=== PATIENT | female | born 1990 | race Caucasian/White ===

== ENCOUNTER 2017-10-29 19:55 | Emergency (ER) | payer OTHER ==
[~2017-10-29] VITALS: Ht 157.5 cm; Wt 62.0 kg
[~2017-10-29 19:55] MED LIST: ALPR1TAB2 PO; ESCI10TA PO
[2017-10-29] MEDS ORDERED: HYDROcodone/acetaminophen 10/325mg tab PO ONE (21:25)
[2017-10-29] MEDS ORDERED: HYDR-3965 PO (21:40)
[2017-10-29 22:38] VITALS: BP 122/74
== END 2017-10-29 22:40 | disposition home or self-care (01) ==
LOC: ER 19:55
DX: S62.502A Fracture of unspecified phalanx of left thumb, initial encounter for closed fracture (principal); K21.9 Gastro-esophageal reflux disease without esophagitis; Z90.49 Acquired absence of other specified parts of digestive tract; V19.9XXA Pedal cyclist (driver) (passenger) injured in unspecified traffic accident, initial encounter; Y93.55 Activity, bike riding; Y92.89 Other specified places as the place of occurrence of the external cause; Y99.8 Other external cause status
CPT/HCPCS: 73140; 99284; A6255

== ENCOUNTER 2020-12-01 11:26 | Emergency (ER) | payer MEDICAID ==
[~2020-12-01] VITALS: Ht 157.5 cm; Wt 57.5 kg
[~2020-12-01 11:26] MED LIST changes: +CEPH-585 PO
[2020-12-01 12:51] LABS: MEAN PLATELET VOLUME 7.7 FL (7.4-10.4); WHITE BLOOD COUNT 6.5 X10'3 (4.5-11.0)
[2020-12-01 12:53] LABS: HEMATOCRIT 39.1 % (35.0-45.0); HEMOGLOBIN 13.2 g/dl (12.0-16.0); MEAN CORPUSCULAR HEMOGLOBIN 29.9 PG (27.0-31.0); MEAN CORPUSCULAR HGB CONC 33.9 g/dL (33.0-36.5); MEAN CORPUSCULAR VOLUME 88.4 FL (78-98); PLATELET COUNT 257 X10'3 (140-440); RED BLOOD COUNT 4.43 X10'6 (4.20-5.60); RED CELL DISTRIBUTION WIDTH 12.2 % (11.5-14.5)
[2020-12-01 13:06] LABS: ALANINE AMINOTRANSFERASE 31 U/L (12-78); ALBUMIN 3.4 G/DL (3.4-5.0); ALBUMIN/GLOBULIN RATIO 0.8 (1.1-1.5); ALKALINE PHOSPHATASE 125 IU/L (46-116); ANION GAP 7 (8-16); ASPARTATE AMINO TRANSFERASE 20 U/L (10-37); BILIRUBIN,TOTAL 0.2 MG/DL (0.1-1.0); BLOOD UREA NITROGEN 12 MG/DL (7-18); BUN/CREATININE RATIO 15.8 (6.6-38.0); CALCIUM 9.5 MG/DL (8.5-10.1); CHLORIDE 105 MMOL/L (99-107); CREATININE 0.76 MG/DL (0.40-0.90); GLUCOSE 96 MG/DL (70-104); POTASSIUM 3.9 MMOL/L (3.5-5.1); SODIUM 144 MMOL/L (135-145); TOTAL CARBON DIOXIDE 32.5 MMOL/L (24-32); TOTAL PROTEIN 7.9 G/DL (6.4-8.2); eGFR > 90 ML/MIN
[2020-12-01 13:27] LABS: PLATELET ESTIMATE NORMAL; TOTAL CELLS COUNTED 100
[2020-12-01] MEDS ORDERED: ceFAZolin 1gm IM kit IM ONE (14:55)
[2020-12-01] MEDS ORDERED: CEPH-585 PO (14:58)
--- NOTE | 2020-12-01 15:21 | NUR ---
patient seen , treated and discahrged prior to rn contact. 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
[2020-12-01 15:22] VITALS: BP 121/65
== END 2020-12-01 15:26 | disposition home or self-care (01) ==
LOC: ER 11:27
DX: L02.413 Cutaneous abscess of right upper limb (principal); L03.113 Cellulitis of right upper limb; K21.9 Gastro-esophageal reflux disease without esophagitis; F41.9 Anxiety disorder, unspecified; Z90.49 Acquired absence of other specified parts of digestive tract; Z98.890 Other specified postprocedural states; Z88.8 Allergy status to other drugs, medicaments and biological substances; Z79.2 Long term (current) use of antibiotics; Z79.899 Other long term (current) drug therapy
CPT/HCPCS: 10060; 80053; 84145; 85007; 85025; 96372; 99284; J0690

== ENCOUNTER 2021-01-31 20:16 | Emergency (ER) | payer MEDICAID ==
[~2021-01-31] VITALS: Ht 157.5 cm; Wt 54.5 kg
[2021-01-31] MEDS ORDERED: ondansetron 4mg rapidly disintigrating tab PO ONE (21:35)
[2021-01-31 21:51] VITALS: BP 117/78
== END 2021-01-31 21:52 | disposition home or self-care (01) ==
LOC: ER 20:17
DX: R11.0 Nausea (principal); R42 Dizziness and giddiness; K21.9 Gastro-esophageal reflux disease without esophagitis; F41.9 Anxiety disorder, unspecified; Z90.49 Acquired absence of other specified parts of digestive tract; Z98.890 Other specified postprocedural states; Z88.8 Allergy status to other drugs, medicaments and biological substances; Z79.2 Long term (current) use of antibiotics; Z79.899 Other long term (current) drug therapy
CPT/HCPCS: 99283

== ENCOUNTER 2021-03-05 12:36 | Emergency (ER) | payer MEDICAID ==
[~2021-03-05] VITALS: Ht 157.5 cm; Wt 57.7 kg
[2021-03-05 12:42] VITALS: BP 133/92
[2021-03-05] MEDS ORDERED: MUPI22OI30 TOP (15:42)
== END 2021-03-05 15:58 | disposition home or self-care (01) ==
LOC: ER 12:36
DX: J34.89 Other specified disorders of nose and nasal sinuses (principal); K21.9 Gastro-esophageal reflux disease without esophagitis; F41.9 Anxiety disorder, unspecified; Z90.49 Acquired absence of other specified parts of digestive tract; Z98.890 Other specified postprocedural states; Z88.8 Allergy status to other drugs, medicaments and biological substances; Z79.2 Long term (current) use of antibiotics; Z79.899 Other long term (current) drug therapy
CPT/HCPCS: 99283

== ENCOUNTER 2021-03-10 11:01 | Emergency (ER) | payer MEDICAID ==
[~2021-03-10] VITALS: Ht 157.5 cm; Wt 57.7 kg
[~2021-03-10 11:01] MED LIST changes: +MUPI22OI30 TOP
[2021-03-10 11:05] VITALS: BP 158/98
[2021-03-10] MEDS ORDERED: CLIN150C2 PO (11:09)
== END 2021-03-10 11:24 | disposition home or self-care (01) ==
LOC: ER 11:02
DX: L70.8 Other acne (principal); K21.9 Gastro-esophageal reflux disease without esophagitis; F41.9 Anxiety disorder, unspecified; Z87.81 Personal history of (healed) traumatic fracture; Z88.8 Allergy status to other drugs, medicaments and biological substances
CPT/HCPCS: 99283

== ENCOUNTER 2021-03-14 12:50 | Emergency (ER) | payer MEDICAID ==
[~2021-03-14] VITALS: Ht 157.5 cm; Wt 57.0 kg
[~2021-03-14 12:50] MED LIST changes: +CLIN150C2 PO; -MUPI22OI30 TOP
[2021-03-14 13:06] VITALS: BP 123/81
== END 2021-03-14 15:42 | disposition home or self-care (01) ==
LOC: ER 12:51
DX: M25.512 Pain in left shoulder (principal); K21.9 Gastro-esophageal reflux disease without esophagitis; F41.9 Anxiety disorder, unspecified; Z90.49 Acquired absence of other specified parts of digestive tract; Z98.890 Other specified postprocedural states; Z88.8 Allergy status to other drugs, medicaments and biological substances; Z79.2 Long term (current) use of antibiotics; Z79.899 Other long term (current) drug therapy
CPT/HCPCS: 73030; 99283

== ENCOUNTER 2021-05-02 21:20 | Emergency (ER) | payer MEDICAID ==
[~2021-05-02] VITALS: Ht 157.5 cm; Wt 57.7 kg
[~2021-05-02 21:20] MED LIST changes: -CLIN150C2 PO
[2021-05-02 21:43] VITALS: BP 145/81
--- NOTE | 2021-05-02 21:47 | NUR ---
PT PREFERS TO GO BY [facility]
[2021-05-02] MEDS ORDERED: ONDA4TAB12 PO (21:48)
== END 2021-05-02 23:15 | disposition home or self-care (01) ==
LOC: ER 21:20
DX: R50.9 Fever, unspecified (principal); Z20.822 Contact with and (suspected) exposure to COVID-19; R11.2 Nausea with vomiting, unspecified; K21.9 Gastro-esophageal reflux disease without esophagitis; F41.9 Anxiety disorder, unspecified; Z90.49 Acquired absence of other specified parts of digestive tract; Z98.890 Other specified postprocedural states; Z88.8 Allergy status to other drugs, medicaments and biological substances; Z79.2 Long term (current) use of antibiotics; Z79.899 Other long term (current) drug therapy
CPT/HCPCS: 87635; 99283; C9803

== ENCOUNTER 2021-11-03 22:30 | Emergency (ER) | payer MEDICAID ==
[~2021-11-03] VITALS: Ht 157.5 cm; Wt 55.1 kg
[~2021-11-03 22:30] MED LIST changes: -CEPH-585 PO; +ONDA4TAB12 PO
[2021-11-03] MEDS ORDERED: normal saline 1000ML IV soln IVB ONE ×2 (23:15→23:20)
--- NOTE | 2021-11-03 23:37 | NUR ---
Pt pink, alert, no acute/resp distress. PIV site c/d/i s complication or adverse rxn. IVF infusing well s complication or infiltration.
[2021-11-03 23:39] LABS: BASOPHILS # (AUTO) 0.1 X10'3 (0-0.2); BASOPHILS % (AUTO) 1.2 % (0-1); EOSINOPHILS # (AUTO) 0.1 X10'3 (0-0.9); EOSINOPHILS % (AUTO) 0.9 % (0-6); HEMATOCRIT 40.7 % (35.0-45.0); HEMOGLOBIN 13.8 g/dl (12.0-16.0); LYMPHOCYTES # (AUTO) 1.1 X10'3 (1.1-4.8); LYMPHOCYTES % (AUTO) 17.2 % (21-51); MEAN CORPUSCULAR HEMOGLOBIN 29.5 PG (27.0-31.0); MEAN CORPUSCULAR HGB CONC 33.9 g/dL (33.0-36.5); MEAN CORPUSCULAR VOLUME 86.9 FL (78-98); MONOCYTES # (AUTO) 0.5 X10'3 (0-0.9); MONOCYTES % (AUTO) 7.1 % (2-12); NEUTROPHILS # (AUTO) 4.9 X10'3 (1.8-7.7); NEUTROPHILS % (AUTO) 73.6 % (42-75); PLATELET COUNT 260 X10'3 (140-440); RED BLOOD COUNT 4.68 X10'6 (4.20-5.60); WHITE BLOOD COUNT 6.6 X10'3 (4.5-11.0)
[2021-11-03 23:41] LABS: D-DIMER < 0.19 MG/L FEU (0-0.50)
[2021-11-03 23:43] LABS: ALANINE AMINOTRANSFERASE 21 U/L (12-78); ALBUMIN 3.9 G/DL (3.4-5.0); ALKALINE PHOSPHATASE 106 IU/L (46-116); ANION GAP 12 (8-16); ASPARTATE AMINO TRANSFERASE 15 U/L (10-37); BILIRUBIN,TOTAL 0.2 MG/DL (0.1-1.0); BLOOD UREA NITROGEN 13 MG/DL (7-18); BUN/CREATININE RATIO 18.1 (6.6-38.0); CALCIUM 8.7 MG/DL (8.5-10.1); CHLORIDE 104 MMOL/L (99-107); CREATININE 0.72 MG/DL (0.40-0.90); GLUCOSE 128 MG/DL (70-104); POTASSIUM 3.5 MMOL/L (3.5-5.1); SODIUM 144 MMOL/L (135-145); TOTAL CARBON DIOXIDE 28.2 MMOL/L (24-32); TOTAL PROTEIN 7.7 G/DL (6.4-8.2); eGFR > 90 ML/MIN
[2021-11-03 23:52] LABS: C-REACTIVE PROTEIN 0.13 MG/DL (0.0-0.5)
--- NOTE | 2021-11-04 00:06 | NUR ---
Rapid Covid test collected, labeled, walked to lab. Pt pink, alert, no acute/resp distress. Pt bernardino. procedure well, remained pink.
[2021-11-04 00:51] VITALS: BP 145/68
--- NOTE | 2021-11-04 00:52 | NUR ---
Pt pink, no acute/resp distress. PIV site c/d/i s complication.
[2021-11-04] MEDS ORDERED: ONDA4TAB12 PO (00:59)
[2021-11-04] MEDS ORDERED: ondansetron/PF 4mg/2ml inj IV ONE (01:00)
== END 2021-11-04 01:15 | disposition home or self-care (01) ==
LOC: ER 22:31
DX: R07.9 Chest pain, unspecified (principal); F15.10 Other stimulant abuse, uncomplicated; Z20.822 Contact with and (suspected) exposure to COVID-19; K21.9 Gastro-esophageal reflux disease without esophagitis; F41.9 Anxiety disorder, unspecified; F12.10 Cannabis abuse, uncomplicated; Z88.8 Allergy status to other drugs, medicaments and biological substances; Z87.81 Personal history of (healed) traumatic fracture
CPT/HCPCS: 36415; 71045; 80053; 83880; 84145; 84484; 85025; 85379; 86140; 87635; 93005; 96361; 96374; 99285; C9803; J2405; J7030; U0003

== ENCOUNTER 2022-02-21 22:07 | Emergency (ER) | payer MEDICAID ==
[~2022-02-21] VITALS: Ht 157.5 cm; Wt 50.8 kg
[2022-02-21 23:25] LABS: BASOPHILS # (AUTO) 0.1 X10'3 (0-0.2); BASOPHILS % (AUTO) 1.6 % (0-1); EOSINOPHILS # (AUTO) 0.1 X10'3 (0-0.9); EOSINOPHILS % (AUTO) 1.1 % (0-6); HEMATOCRIT 39.4 % (35.0-45.0); HEMOGLOBIN 13.5 g/dl (12.0-16.0); LYMPHOCYTES # (AUTO) 1.6 X10'3 (1.1-4.8); LYMPHOCYTES % (AUTO) 30.4 % (21-51); MEAN CORPUSCULAR HEMOGLOBIN 28.2 PG (27.0-31.0); MEAN CORPUSCULAR HGB CONC 34.2 g/dL (33.0-36.5); MEAN CORPUSCULAR VOLUME 82.7 FL (78-98); MONOCYTES # (AUTO) 0.4 X10'3 (0-0.9); MONOCYTES % (AUTO) 8.3 % (2-12); NEUTROPHILS # (AUTO) 3.1 X10'3 (1.8-7.7); NEUTROPHILS % (AUTO) 58.6 % (42-75); PLATELET COUNT 261 X10'3 (140-440); RED BLOOD COUNT 4.76 X10'6 (4.20-5.60); RED CELL DISTRIBUTION WIDTH 12.9 % (11.5-14.5); WHITE BLOOD COUNT 5.4 X10'3 (4.5-11.0)
[2022-02-21 23:35] LABS: CLARITY,URINE CLEAR (Clear); COLOR,URINE YELLOW (Yellow); GLUCOSE, URINE NEGATIVE (Neg); KETONES,URINE NEGATIVE (Neg); LEUKOCYTE ESTERASE ,URINE NEGATIVE (Neg); NITRITES, URINE NEGATIVE (Neg); OCCULT BLOOD,URINE NEGATIVE (Neg); PROTEIN,URINE NEGATIVE (Neg); URINE HCG NEGATIVE (NEG)
[2022-02-21 23:41] LABS: ALANINE AMINOTRANSFERASE 36 U/L (12-78); ALBUMIN 3.3 G/DL (3.4-5.0); ALBUMIN/GLOBULIN RATIO 0.8 (1.1-1.5); ALKALINE PHOSPHATASE 134 IU/L (46-116); ANION GAP 7 (8-16); ASPARTATE AMINO TRANSFERASE 26 U/L (10-37); BILIRUBIN,TOTAL 0.4 MG/DL (0.1-1.0); BLOOD UREA NITROGEN 11 MG/DL (7-18); BUN/CREATININE RATIO 18.6 (6.6-38.0); CALCIUM 8.6 MG/DL (8.5-10.1); CHLORIDE 103 MMOL/L (99-107); CREATININE 0.59 MG/DL (0.40-0.90); GLUCOSE 120 MG/DL (70-104); LIPASE < 50 U/L (73-393); POTASSIUM 3.6 MMOL/L (3.5-5.1); SODIUM 136 MMOL/L (135-145); TOTAL CARBON DIOXIDE 26.5 MMOL/L (24-32); TOTAL PROTEIN 7.7 G/DL (6.4-8.2); eGFR > 90 ML/MIN
[2022-02-21 23:42] LABS: UA COLLECTION TYPE CLN CATCH MIDSTREAM
== END 2022-02-22 07:47 | disposition left against medical advice (07) ==
LOC: ER 22:09
DX: R07.89 Other chest pain (principal); R10.9 Unspecified abdominal pain; R42 Dizziness and giddiness; Z53.21 Procedure and treatment not carried out due to patient leaving prior to being seen by health care provider
CPT/HCPCS: 36415; 80053; 81003; 81025; 83690; 85025

== ENCOUNTER 2022-04-28 19:08 | Emergency (ER) | payer MEDICAID ==
[~2022-04-28] VITALS: Ht 157.5 cm; Wt 54.5 kg
[2022-04-28 19:21] VITALS: BP 134/91
[2022-04-28] MEDS ORDERED: ketorolac trometh. 30mg/ml inj. IM ONE (21:20)
[2022-04-28] MEDS ORDERED: cephalexin 250mg capsule PO ONE (21:20)
[2022-04-28] MEDS ORDERED: sulfamethoxazole/trimethoprim DS (800/160mg) tablet PO ONE (21:20)
[2022-04-28] MEDS ORDERED: SULF1TAB45 PO ×3 (21:23→21:54)
[2022-04-28] MEDS ORDERED: CEPH-585 PO ×3 (21:23→21:54)
== END 2022-04-28 21:35 | disposition home or self-care (01) ==
LOC: ER 19:09
DX: H60.12 Cellulitis of left external ear (principal); K21.9 Gastro-esophageal reflux disease without esophagitis; F41.9 Anxiety disorder, unspecified; F12.90 Cannabis use, unspecified, uncomplicated; F15.90 Other stimulant use, unspecified, uncomplicated; Z90.49 Acquired absence of other specified parts of digestive tract; Z98.890 Other specified postprocedural states; Z72.89 Other problems related to lifestyle; Z88.8 Allergy status to other drugs, medicaments and biological substances; Z79.2 Long term (current) use of antibiotics; Z79.899 Other long term (current) drug therapy
CPT/HCPCS: 99283

== ENCOUNTER 2022-07-18 21:19 | Emergency (ER) | payer MEDICAID ==
[~2022-07-18] VITALS: Ht 157.5 cm; Wt 54.5 kg
[~2022-07-18 21:19] MED LIST changes: +CEPH-585 PO; +SULF1TAB45 PO
[2022-07-18 21:33] VITALS: BP 117/74
[2022-07-19 05:15] LABS: CLARITY,URINE SLIGHTLY CLOUDY (Clear); GLUCOSE, URINE NEGATIVE (Neg); KETONES,URINE 15 mg/dl (Neg); LEUKOCYTE ESTERASE ,URINE NEGATIVE (Neg); NITRITES, URINE NEGATIVE (Neg); OCCULT BLOOD,URINE NEGATIVE (Neg); PROTEIN,URINE TRACE mg/dl (Neg); UROBILINOGEN,URINE 0.2 E.U/dL (0.2-1.0)
[2022-07-19 05:16] LABS: COLOR,URINE DARK YELLOW (Yellow); UA COLLECTION TYPE VOIDED
[2022-07-19 05:24] LABS: BACTERIA,URINE FEW /HPF (Neg); MUCUS STRANDS MANY /LPF (Neg); RBC,URINE NONE SEEN /HPF (0-2); SQUAMOUS EPITHELIAL CELL,UR MODERATE /LPF (FEW)
[2022-07-20] MEDS ORDERED: SULF1TAB49 PO (23:29)
== END 2022-07-19 07:30 | disposition left against medical advice (07) ==
LOC: ER 21:21
DX: M54.2 Cervicalgia (principal); Z20.822 Contact with and (suspected) exposure to COVID-19; R51.9 Headache, unspecified; M25.571 Pain in right ankle and joints of right foot
CPT/HCPCS: 81001; 87088

== ENCOUNTER 2022-07-20 18:00 | Emergency (ER) | payer MEDICAID ==
[~2022-07-20] VITALS: Ht 157.5 cm; Wt 54.5 kg
[2022-07-20 21:37] LABS: CLARITY,URINE SLIGHTLY CLOUDY (Clear); COLOR,URINE YELLOW (Yellow); GLUCOSE, URINE NEGATIVE (Neg); KETONES,URINE TRACE mg/dl (Neg); LEUKOCYTE ESTERASE ,URINE NEGATIVE (Neg); NITRITES, URINE NEGATIVE (Neg); OCCULT BLOOD,URINE NEGATIVE (Neg); PH,URINE 5.5 (4.8-8.0); PROTEIN,URINE NEGATIVE (Neg); UROBILINOGEN,URINE 0.2 E.U/dL (0.2-1.0)
[2022-07-20 21:39] LABS: BASOPHILS # (AUTO) 0.1 X10'3 (0-0.2); BASOPHILS % (AUTO) 1.2 % (0-1); EOSINOPHILS # (AUTO) 0.2 X10'3 (0-0.9); EOSINOPHILS % (AUTO) 2.7 % (0-6); HEMATOCRIT 40.3 % (35.0-45.0); HEMOGLOBIN 13.7 g/dl (12.0-16.0); LYMPHOCYTES # (AUTO) 2.9 X10'3 (1.1-4.8); LYMPHOCYTES % (AUTO) 46.3 % (21-51); MEAN CORPUSCULAR HGB CONC 34.1 g/dL (33.0-36.5); MEAN CORPUSCULAR VOLUME 85.2 FL (78-98); MEAN PLATELET VOLUME 8.2 FL (7.4-10.4); MONOCYTES # (AUTO) 0.4 X10'3 (0-0.9); MONOCYTES % (AUTO) 6.6 % (2-12); NEUTROPHILS # (AUTO) 2.7 X10'3 (1.8-7.7); NEUTROPHILS % (AUTO) 43.2 % (42-75); PLATELET COUNT 265 X10'3 (140-440); RED BLOOD COUNT 4.73 X10'6 (4.20-5.60); RED CELL DISTRIBUTION WIDTH 12.7 % (11.5-14.5); WHITE BLOOD COUNT 6.4 X10'3 (4.5-11.0)
[2022-07-20 21:43] LABS: URINE HCG NEGATIVE (NEG)
[2022-07-20 21:51] LABS: UA COLLECTION TYPE CLN CATCH MIDSTREAM
[2022-07-20 21:52] LABS: BACTERIA,URINE 1+ /HPF (Neg); RBC,URINE NONE SEEN /HPF (0-2); SQUAMOUS EPITHELIAL CELL,UR FEW /LPF (FEW)
[2022-07-20 21:53] LABS: ALANINE AMINOTRANSFERASE 33 U/L (12-78); ALBUMIN 3.8 G/DL (3.4-5.0); ALKALINE PHOSPHATASE 111 IU/L (46-116); ANION GAP 7 (8-16); ASPARTATE AMINO TRANSFERASE 37 U/L (10-37); BILIRUBIN,TOTAL 0.2 MG/DL (0.1-1.0); BLOOD UREA NITROGEN 11 MG/DL (7-18); BUN/CREATININE RATIO 14.9 (6.6-38.0); CALCIUM 9.3 MG/DL (8.5-10.1); CHLORIDE 102 MMOL/L (99-107); CREATININE 0.74 MG/DL (0.40-0.90); GLUCOSE 111 MG/DL (70-104); POTASSIUM 3.1 MMOL/L (3.5-5.1); SODIUM 144 MMOL/L (135-145); TOTAL CARBON DIOXIDE 34.9 MMOL/L (24-32); TOTAL PROTEIN 7.5 G/DL (6.4-8.2); eGFR > 90 ML/MIN
[2022-07-20] MEDS ORDERED: sulfamethoxazole/trimethoprim DS (800/160mg) tablet PO ONE (22:15)
[2022-07-20] MEDS ORDERED: POTASSIUM BICARB 20meq eff tab 20 MEQ TABLET.EFF PO STA (22:17)
[2022-07-20] MEDS ORDERED: SULF1TAB49 PO (23:29)
[2022-07-20 23:43] VITALS: BP 106/68
== END 2022-07-20 23:44 | disposition home or self-care (01) ==
LOC: ER 18:01
DX: S00.81XA Abrasion of other part of head, initial encounter (principal); S10.91XA Abrasion of unspecified part of neck, initial encounter; Z87.81 Personal history of (healed) traumatic fracture; F12.10 Cannabis abuse, uncomplicated; F15.10 Other stimulant abuse, uncomplicated; K21.9 Gastro-esophageal reflux disease without esophagitis; Z88.8 Allergy status to other drugs, medicaments and biological substances; Z79.899 Other long term (current) drug therapy; F41.9 Anxiety disorder, unspecified; X58.XXXA Exposure to other specified factors, initial encounter; Y99.8 Other external cause status; Y92.89 Other specified places as the place of occurrence of the external cause; Y93.89 Activity, other specified
CPT/HCPCS: 36415; 71045; 80053; 81001; 81025; 83605; 84145; 85025; 87040; 87088; 99284

== ENCOUNTER 2022-08-05 19:24 | Emergency (ER) | payer MEDICAID ==
[~2022-08-05] VITALS: Ht 157.5 cm; Wt 54.8 kg
[2022-08-05 19:38] VITALS: BP 150/84
[2022-08-05 20:36] LABS: URINE HCG NEGATIVE (NEG)
[2022-08-05 20:37] LABS: CLARITY,URINE SLIGHTLY CLOUDY (Clear); COLOR,URINE YELLOW (Yellow); GLUCOSE, URINE NEGATIVE (Neg); KETONES,URINE TRACE mg/dl (Neg); LEUKOCYTE ESTERASE ,URINE NEGATIVE (Neg); NITRITES, URINE NEGATIVE (Neg); OCCULT BLOOD,URINE NEGATIVE (Neg); PH,URINE 5.5 (4.8-8.0); PROTEIN,URINE 30 mg/dl (Neg); UROBILINOGEN,URINE 0.2 E.U/dL (0.2-1.0)
[2022-08-05 20:43] LABS: UA COLLECTION TYPE CLN CATCH MIDSTREAM
[2022-08-05 20:47] LABS: BACTERIA,URINE 2+ /HPF (Neg); FINE GRANULAR CAST 0-3 /LPF (NEGATIVE); MUCUS STRANDS FEW /LPF (Neg); SQUAMOUS EPITHELIAL CELL,UR FEW /LPF (FEW); TRANSITIONAL EPI CELLS,URINE FEW /HPF; YEAST FEW /HPF (NEGATIVE)
[2022-08-05] MEDS ORDERED: normal saline 1000ml 1,000 ML IV ONE (21:10)
[2022-08-05 21:33] LABS: BASOPHILS # (AUTO) 0.1 X10'3 (0-0.2); BASOPHILS % (AUTO) 0.8 % (0-1); EOSINOPHILS # (AUTO) 0.1 X10'3 (0-0.9); EOSINOPHILS % (AUTO) 1.1 % (0-6); HEMATOCRIT 40.9 % (35.0-45.0); HEMOGLOBIN 13.7 g/dl (12.0-16.0); LYMPHOCYTES # (AUTO) 2.2 X10'3 (1.1-4.8); LYMPHOCYTES % (AUTO) 29.3 % (21-51); MEAN CORPUSCULAR HEMOGLOBIN 28.8 PG (27.0-31.0); MEAN CORPUSCULAR HGB CONC 33.4 g/dL (33.0-36.5); MEAN CORPUSCULAR VOLUME 86.2 FL (78-98); MEAN PLATELET VOLUME 7.8 FL (7.4-10.4); MONOCYTES # (AUTO) 0.7 X10'3 (0-0.9); MONOCYTES % (AUTO) 8.9 % (2-12); NEUTROPHILS # (AUTO) 4.6 X10'3 (1.8-7.7); NEUTROPHILS % (AUTO) 59.9 % (42-75); PLATELET COUNT 283 X10'3 (140-440); RED BLOOD COUNT 4.74 X10'6 (4.20-5.60); RED CELL DISTRIBUTION WIDTH 13.1 % (11.5-14.5); WHITE BLOOD COUNT 7.6 X10'3 (4.5-11.0)
[2022-08-05 21:49] LABS: ALANINE AMINOTRANSFERASE 43 U/L (12-78); ALBUMIN 3.9 G/DL (3.4-5.0); ALBUMIN/GLOBULIN RATIO 1.1 (1.1-1.5); ALKALINE PHOSPHATASE 103 IU/L (46-116); ANION GAP 10 (8-16); ASPARTATE AMINO TRANSFERASE 35 U/L (10-37); BILIRUBIN,TOTAL 0.2 MG/DL (0.1-1.0); BLOOD UREA NITROGEN 8 MG/DL (7-18); CALCIUM 8.9 MG/DL (8.5-10.1); CHLORIDE 102 MMOL/L (99-107); CREATININE 0.73 MG/DL (0.40-0.90); GLUCOSE 108 MG/DL (70-104); LIPASE < 50 U/L (73-393); POTASSIUM 3.5 MMOL/L (3.5-5.1); SODIUM 138 MMOL/L (135-145); TOTAL PROTEIN 7.6 G/DL (6.4-8.2); eGFR > 90 ML/MIN
[2022-08-05] MEDS ORDERED: CefTRIAXone/D5W-Rocephin 1gm 50 ML IV ONE (21:50)
[2022-08-05] MEDS ORDERED: acetaminophen 325mg tablet PO ONE (21:50)
[2022-08-05] MEDS ORDERED: cephalexin 250mg capsule PO ONE (21:55)
[2022-08-05] MEDS ORDERED: CEPH250T PO (21:56)
== END 2022-08-05 22:10 | disposition home or self-care (01) ==
LOC: ER 19:24
DX: N39.0 Urinary tract infection, site not specified (principal); K21.9 Gastro-esophageal reflux disease without esophagitis; F41.9 Anxiety disorder, unspecified; F12.90 Cannabis use, unspecified, uncomplicated; F15.90 Other stimulant use, unspecified, uncomplicated; Z72.89 Other problems related to lifestyle; Z90.49 Acquired absence of other specified parts of digestive tract; Z98.890 Other specified postprocedural states; Z79.899 Other long term (current) drug therapy; Z88.8 Allergy status to other drugs, medicaments and biological substances
CPT/HCPCS: 36415; 80053; 81001; 81025; 83690; 85025; 87088; 99283; J7030

== ENCOUNTER 2022-11-11 05:15 | Emergency (ER) | payer MEDICAID ==
[~2022-11-11] VITALS: Ht 157.5 cm; Wt 58.2 kg
[2022-11-11 05:47] VITALS: BP 151/96
[2022-11-11] MEDS ORDERED: amox tr/potassium clavulanate 875/125mg TAB PO ONE (06:15)
[2022-11-11] MEDS ORDERED: AMOX-115 PO ×3 (06:15→06:29)
== END 2022-11-11 06:30 | disposition home or self-care (01) ==
LOC: ER 05:16
DX: L03.211 Cellulitis of face (principal); K21.9 Gastro-esophageal reflux disease without esophagitis; F41.9 Anxiety disorder, unspecified; F12.90 Cannabis use, unspecified, uncomplicated; F15.90 Other stimulant use, unspecified, uncomplicated; Z90.49 Acquired absence of other specified parts of digestive tract; Z98.890 Other specified postprocedural states; Z72.89 Other problems related to lifestyle; Z79.899 Other long term (current) drug therapy
CPT/HCPCS: 99283

== ENCOUNTER 2022-12-01 16:14 | Emergency (ER) | payer MEDICAID ==
[~2022-12-01] VITALS: Ht 157.5 cm; Wt 58.0 kg
[~2022-12-01 16:14] MED LIST changes: +AMOX-115 PO
[2022-12-01 16:17] VITALS: BP 156/106
[2022-12-01 16:52] LABS: BASOPHILS # (AUTO) 0.1 X10'3 (0-0.2); BASOPHILS % (AUTO) 0.6 % (0-1); EOSINOPHILS # (AUTO) 0.2 X10'3 (0-0.9); EOSINOPHILS % (AUTO) 2.1 % (0-6); HEMATOCRIT 44.4 % (35.0-45.0); HEMOGLOBIN 15.2 g/dl (12.0-16.0); LYMPHOCYTES # (AUTO) 2.7 X10'3 (1.1-4.8); LYMPHOCYTES % (AUTO) 28.2 % (21-51); MEAN CORPUSCULAR HEMOGLOBIN 29.7 PG (27.0-31.0); MEAN CORPUSCULAR HGB CONC 34.2 g/dL (33.0-36.5); MEAN CORPUSCULAR VOLUME 86.7 FL (78-98); MEAN PLATELET VOLUME 7.6 FL (7.4-10.4); MONOCYTES # (AUTO) 0.6 X10'3 (0-0.9); MONOCYTES % (AUTO) 6.7 % (2-12); NEUTROPHILS # (AUTO) 5.9 X10'3 (1.8-7.7); NEUTROPHILS % (AUTO) 62.4 % (42-75); PLATELET COUNT 335 X10'3 (140-440); RED BLOOD COUNT 5.12 X10'6 (4.20-5.60); RED CELL DISTRIBUTION WIDTH 13.2 % (11.5-14.5); WHITE BLOOD COUNT 9.4 X10'3 (4.5-11.0)
[2022-12-01 16:54] LABS: ALANINE AMINOTRANSFERASE 29 U/L (12-78); ALBUMIN 3.7 G/DL (3.4-5.0); ALBUMIN/GLOBULIN RATIO 0.9 (1.1-1.5); ALKALINE PHOSPHATASE 143 IU/L (46-116); ANION GAP 9 (8-16); ASPARTATE AMINO TRANSFERASE 16 U/L (10-37); BILIRUBIN,TOTAL 0.3 MG/DL (0.1-1.0); BLOOD UREA NITROGEN 11 MG/DL (7-18); BUN/CREATININE RATIO 14.1 (10.0-20.0); CALCIUM 9.3 MG/DL (8.5-10.1); CHLORIDE 105 MMOL/L (99-107); CREATININE 0.78 MG/DL (0.40-0.90); GLUCOSE 118 MG/DL (70-104); POTASSIUM 4.1 MMOL/L (3.5-5.1); SODIUM 143 MMOL/L (135-145); TOTAL PROTEIN 7.8 G/DL (6.4-8.2); eGFR 87 ML/MIN
[2022-12-01] MEDS ORDERED: IBUP-1985 PO (17:03)
[2022-12-01] MEDS ORDERED: AMOX-117 PO (17:03)
[2022-12-01] MEDS ORDERED: ibuprofen tablet 400 MG TABLET PO ONE (17:05)
[2022-12-01] MEDS ORDERED: amox tr/potassium clavulanate 875/125mg TAB PO ONE (17:05)
[2022-12-01 17:24] LABS: CLARITY,URINE CLOUDY (Clear); COLOR,URINE YELLOW (Yellow); GLUCOSE, URINE NEGATIVE (Neg); KETONES,URINE TRACE mg/dl (Neg); LEUKOCYTE ESTERASE ,URINE NEGATIVE (Neg); NITRITES, URINE NEGATIVE (Neg); OCCULT BLOOD,URINE NEGATIVE (Neg); PROTEIN,URINE NEGATIVE (Neg)
[2022-12-01 17:29] LABS: URINE HCG NEGATIVE (NEG)
--- NOTE | 2022-12-01 17:30 | NUR ---
I AGREE WITH THE GENERAL ASSESSMENT PER Bruce GIPSON LVN.
[2022-12-01 17:31] LABS: UA COLLECTION TYPE CLN CATCH MIDSTREAM
[2022-12-01 17:32] LABS: BACTERIA,URINE FEW /HPF (Neg); HYALINE CASTS 0-3 /LPF (NEGATIVE); MUCUS STRANDS MANY /LPF (Neg); RBC,URINE 0-2 /HPF (0-2); SQUAMOUS EPITHELIAL CELL,UR MANY /LPF (FEW); WBC,URINE 0-4 /HPF (0-4)
[2022-12-01 17:42] LABS: URINE AMPHETAMINE SCREEN NEGATIVE (Neg); URINE BARBITUATE SCREEN NEGATIVE (Neg); URINE BENZODIAZEPINES SCREEN NEGATIVE (Neg); URINE CANNABINOID SCREEN POSITIVE (Neg); URINE COCAINE SCREEN NEGATIVE (Neg); URINE METHADONE SCREEN NEGATIVE (Neg); URINE OPIATE SCREEN NEGATIVE (Neg); URINE PHENCYCLIDINE SCREEN NEGATIVE (Neg)
== END 2022-12-01 17:47 | disposition home or self-care (01) ==
LOC: ER 16:15
DX: K11.20 Sialoadenitis, unspecified (principal); K21.9 Gastro-esophageal reflux disease without esophagitis; F15.20 Other stimulant dependence, uncomplicated; F12.90 Cannabis use, unspecified, uncomplicated; Z90.49 Acquired absence of other specified parts of digestive tract
CPT/HCPCS: 36415; 80053; 80305; 81001; 81025; 85025; 99283

== ENCOUNTER 2023-01-15 20:08 | Emergency (ER) | payer MEDICAID ==
[~2023-01-15] VITALS: Ht 157.5 cm; Wt 53.2 kg
[~2023-01-15 20:08] MED LIST changes: +IBUP-1985 PO
[2023-01-15] MEDS ORDERED: DOXYCYCLINE 100MG CAPSULE PO STA (22:18)
[2023-01-15] MEDS ORDERED: bacitracin 15gm ointment TP ONE (22:20)
[2023-01-15 22:55] LABS: BASOPHILS # (AUTO) 0.1 X10'3 (0-0.2); BASOPHILS % (AUTO) 0.7 % (0-1); EOSINOPHILS # (AUTO) 0.1 X10'3 (0-0.9); EOSINOPHILS % (AUTO) 0.8 % (0-6); HEMATOCRIT 43.5 % (35.0-45.0); HEMOGLOBIN 14.6 g/dl (12.0-16.0); LYMPHOCYTES # (AUTO) 1.8 X10'3 (1.1-4.8); LYMPHOCYTES % (AUTO) 17.6 % (21-51); MEAN CORPUSCULAR HEMOGLOBIN 28.9 PG (27.0-31.0); MEAN CORPUSCULAR HGB CONC 33.6 g/dL (33.0-36.5); MEAN CORPUSCULAR VOLUME 85.8 FL (78-98); MEAN PLATELET VOLUME 7.7 FL (7.4-10.4); MONOCYTES # (AUTO) 0.6 X10'3 (0-0.9); NEUTROPHILS # (AUTO) 7.6 X10'3 (1.8-7.7); NEUTROPHILS % (AUTO) 74.9 % (42-75); PLATELET COUNT 288 X10'3 (140-440); RED BLOOD COUNT 5.07 X10'6 (4.20-5.60); RED CELL DISTRIBUTION WIDTH 13.3 % (11.5-14.5); WHITE BLOOD COUNT 10.1 X10'3 (4.5-11.0)
[2023-01-15 22:59] LABS: ALANINE AMINOTRANSFERASE 27 U/L (12-78); ALBUMIN 4.2 G/DL (3.4-5.0); ALBUMIN/GLOBULIN RATIO 1.2 (1.1-1.5); ALKALINE PHOSPHATASE 126 IU/L (46-116); ANION GAP 5 (8-16); ASPARTATE AMINO TRANSFERASE 22 U/L (10-37); BILIRUBIN,TOTAL 0.6 MG/DL (0.1-1.0); BLOOD UREA NITROGEN 13 MG/DL (7-18); BUN/CREATININE RATIO 19.1 (10.0-20.0); C-REACTIVE PROTEIN 0.12 MG/DL (0.0-0.5); CALCIUM 9.5 MG/DL (8.5-10.1); CHLORIDE 101 MMOL/L (99-107); CREATININE 0.68 MG/DL (0.40-0.90); GLUCOSE 83 MG/DL (70-104); MAGNESIUM 2.2 MG/DL (1.5-2.4); POTASSIUM 3.7 MMOL/L (3.5-5.1); SODIUM 140 MMOL/L (135-145); TOTAL CARBON DIOXIDE 34.5 MMOL/L (24-32); TOTAL PROTEIN 7.8 G/DL (6.4-8.2); eGFR > 90 ML/MIN
[2023-01-15 23:13] LABS: COLOR,URINE YELLOW (Yellow); GLUCOSE, URINE NEGATIVE (Neg); KETONES,URINE NEGATIVE (Neg); LEUKOCYTE ESTERASE ,URINE NEGATIVE (Neg); NITRITES, URINE NEGATIVE (Neg); OCCULT BLOOD,URINE NEGATIVE (Neg); PH,URINE 5.5 (4.8-8.0); PROTEIN,URINE NEGATIVE (Neg); UROBILINOGEN,URINE 0.2 E.U/dL (0.2-1.0)
--- NOTE | 2023-01-15 23:19 | NUR ---
pt moved to rm 7 from fast track. vss.
[2023-01-15 23:24] LABS: CLARITY,URINE SLIGHTLY CLOUDY (Clear); UA COLLECTION TYPE VOIDED
[2023-01-15 23:25] LABS: BACTERIA,URINE FEW /HPF (Neg); MUCUS STRANDS FEW /LPF (Neg); RBC,URINE 0-2 /HPF (0-2); SQUAMOUS EPITHELIAL CELL,UR FEW /LPF (FEW); TRANSITIONAL EPI CELLS,URINE FEW /HPF
[2023-01-15 23:44] LABS: HIV ANTIBODY 1&2 RAPID NON-REACTIVE (Neg)
[2023-01-16] MEDS ORDERED: DOXY-1 PO (00:09)
[2023-01-16 01:00] VITALS: BP 118/80
== END 2023-01-16 00:58 | disposition home or self-care (01) ==
LOC: ER 20:08
DX: L02.212 Cutaneous abscess of back [any part, except buttock and flank] (principal); K11.20 Sialoadenitis, unspecified; K21.9 Gastro-esophageal reflux disease without esophagitis; F41.9 Anxiety disorder, unspecified; A64 Unspecified sexually transmitted disease; F12.90 Cannabis use, unspecified, uncomplicated; Z72.89 Other problems related to lifestyle; Z98.890 Other specified postprocedural states; Z88.8 Allergy status to other drugs, medicaments and biological substances; Z79.899 Other long term (current) drug therapy; Z90.49 Acquired absence of other specified parts of digestive tract
CPT/HCPCS: 36415; 80053; 81001; 83605; 83735; 84145; 85025; 85651; 86140; 86703; 87040; 87088; 87491; 99283

== ENCOUNTER 2023-12-12 21:27 | Emergency (ER) | payer MEDICAID ==
[~2023-12-12] VITALS: Ht 157.5 cm; Wt 58.2 kg
[2023-12-12 22:17] LABS: BASOPHILS % (AUTO) 0.4 % (0-1); EOSINOPHILS # (AUTO) 0.1 X10'3 (0-0.9); EOSINOPHILS % (AUTO) 0.6 % (0-6); HEMATOCRIT 46.8 % (35.0-45.0); HEMOGLOBIN 16.2 g/dl (12.0-16.0); LYMPHOCYTES # (AUTO) 2.2 X10'3 (1.1-4.8); LYMPHOCYTES % (AUTO) 22.5 % (21-51); MEAN CORPUSCULAR HEMOGLOBIN 30.1 PG (27.0-31.0); MEAN CORPUSCULAR HGB CONC 34.5 g/dL (33.0-36.5); MEAN CORPUSCULAR VOLUME 87.3 FL (78-98); MEAN PLATELET VOLUME 8.2 FL (7.4-10.4); MONOCYTES # (AUTO) 0.9 X10'3 (0-0.9); MONOCYTES % (AUTO) 8.8 % (2-12); NEUTROPHILS # (AUTO) 6.6 X10'3 (1.8-7.7); NEUTROPHILS % (AUTO) 67.7 % (42-75); PLATELET COUNT 238 X10'3 (140-440); RED BLOOD COUNT 5.36 X10'6 (4.20-5.60); RED CELL DISTRIBUTION WIDTH 13.3 % (11.5-14.5); WHITE BLOOD COUNT 9.8 X10'3 (4.5-11.0)
[2023-12-12 22:36] LABS: ALANINE AMINOTRANSFERASE 36 U/L (12-78); ALBUMIN 4.3 G/DL (3.4-5.0); ALKALINE PHOSPHATASE 109 IU/L (46-116); ANION GAP 10 (8-16); ASPARTATE AMINO TRANSFERASE 29 U/L (10-37); BILIRUBIN,TOTAL 1.2 MG/DL (0.1-1.0); BLOOD UREA NITROGEN 19 MG/DL (7-18); CALCIUM 9.4 MG/DL (8.5-10.1); CHLORIDE 92 MMOL/L (99-107); CREATININE 0.76 MG/DL (0.40-0.90); GLUCOSE 110 MG/DL (70-104); LIPASE 21 U/L (16-77); SODIUM 135 MMOL/L (135-145); TOTAL CARBON DIOXIDE 33.5 MMOL/L (24-32); TOTAL PROTEIN 8.7 G/DL (6.4-8.2); eCRCL 85 ML/MIN; eGFR 89 ML/MIN
[2023-12-12 22:48] LABS: POTASSIUM 2.8 MMOL/L (3.5-5.1)
[2023-12-12] MEDS: normal saline 1000ml 1,000 ML IV ONE ×2 (22:55)
[2023-12-12] MEDS: potassium Cl 20mEq in NS 1,000 ML IV SCH (23:05)
[2023-12-12] MEDS: ondansetron 4mg rapidly disintigrating tab PO ONE (23:22)
[2023-12-13 00:27] VITALS: RESP 12
[2023-12-13] MEDS: POTASSIUM BICARB 20meq eff tab 20 MEQ TABLET.EFF PO ONE (00:27)
[2023-12-13 02:35] VITALS: BP 115/70; PULSE 66; TEMP 99; O2SAT 70
[2023-12-13] MEDS ORDERED: ONDA4TAB12 PO (02:38)
[2023-12-13] MEDS ORDERED: POTASSIUM BICARB 20meq eff tab 20 MEQ TABLET.EFF PO SCH (08:00)
== END 2023-12-13 04:19 | disposition home or self-care (01) ==
LOC: ER 21:28
DX: K52.9 Noninfective gastroenteritis and colitis, unspecified (principal); E87.6 Hypokalemia; K21.9 Gastro-esophageal reflux disease without esophagitis; F41.9 Anxiety disorder, unspecified; F12.90 Cannabis use, unspecified, uncomplicated; F15.90 Other stimulant use, unspecified, uncomplicated; Z72.89 Other problems related to lifestyle; Z88.8 Allergy status to other drugs, medicaments and biological substances; Z79.899 Other long term (current) drug therapy; Z20.822 Contact with and (suspected) exposure to COVID-19
CPT/HCPCS: 36415; 74176; 80053; 83690; 85025; 87502; 87503; 87811; 96365; 96366; 99285; J3480